=== PATIENT | male | born 1985 | race Caucasian/White ===

== ENCOUNTER 2016-06-17 07:21 | Emergency (ER) | payer OTHER ==
[~2016-06-17] VITALS: Ht 172.7 cm; Wt 101.0 kg
[2016-06-17 07:24] VITALS: Ht 172.7 cm; Wt 101.0 kg
--- NOTE | 2016-06-17 07:48 | ERD ---
ER Documentation Chief Complaint Date/Time DATE: 06/17/16 TIME: 07:46 Chief Complaint LT SHOULDER PAIN X 2 WEEKS HPI This a 30-year-old male who presents the emergency department today complaining of left shoulder pain. Patient states that one week ago he was lifting some heavy furniture and had a furniture over his head when his arm went backwards. Patient states since that time he has had cracking when it moves and he feels like the shoulder is slipping out. He has not taken any medication for the pain. Denies any fevers or chills or previous trauma. ROS All systems reviewed and are negative except as per history of present illness. Medications Home Meds Active Scripts Acetaminophen* (Tylophen*) 500 Mg Capsule, 1 CAP PO Q6H Y for PAIN AND OR ELEVATED TEMP, #30 CAP Prov:CHARLES MUJICA PA-C 06/17/16 Naproxen* (Naprosyn*) 500 Mg Tablet, 500 MG PO BID Y for PAIN AND/OR INFLAMMATION, #30 TAB Prov:CHARLES MUJICA PA-C 06/17/16 PMhx/Soc Medical and Surgical Hx: pt denies Medical Hx, pt denies Surgical Hx Hx Tobacco Use: Yes Smoking Status: Current some day smoker Physical Exam Vitals Vital Signs Date Time Temp Pulse Resp B/P Pulse Ox O2 Delivery O2 Flow Rate FiO2 06/17/16 07:24 97.8 68 18 168/88 98 Physical Exam Const: No acute distress Head: Atraumatic Eyes: Normal Conjunctiva ENT: Normal External Ears, Nose and Mouth. Neck: Full range of motion..~ No meningismus. Resp: Clear to auscultation bilaterally Cardio: Regular rate and rhythm, no murmurs Abd: Soft, non tender, non distended. Normal bowel sounds Skin: No petechiae or rashes MSK: Left shoulder with no obvious deformity, no effusion. No ecchymosis. Tenderness to palpation over lateral aspect of deltoid. Full active range of motion with pain. Pulses 2+. Distal neurovascularly intact. Neur: Awake and alert Psych: Normal Mood and Affect Results 24 hrs Current Medications Medications (Trade) Dose Ordered Sig/Ju Route PRN Reason Start Time Stop Time Status Last Admin Dose Admin Ibuprofen (Motrin) 800 mg ONCE ONCE PO 06/17/16 08:00 06/17/16 08:01 DC 3/5/17 07:46 DIAGNOSTIC IMAGING REPORT Patient: FLORIDALMA LOAIZA : 1985 Age: 30 Sex: M [id number] [id number] DOS: 06/17/16 0000 Ordering MD: CHARLES MUJICA PA-C Location: [facility] Room/Bed: PROCEDURE: XR left Shoulder. CLINICAL INDICATION: Trauma, subluxation TECHNIQUE: 3 views of the left shoulder are available for review. COMPARISON: None available FINDINGS: There is no acute fracture or dislocation. The glenohumeral and acromioclavicular joints are intact. The soft tissues around the left shoulder are unremarkable. There is no acute fracture of the visualized left ribs. The visualized left lung is clear. RPTAT: AA IMPRESSION: 1. No acute bony abnormality. .Herlinda Nguyen MD, MD Date Time Electronically viewed and signed by .Herlinda Nguyen MD, on 06/17/2016 08: 41 .T/ CC: CHARLES MUJICA PA-C Procedures/MDM This a 28-year-old male who presents the emergency department today complaining of left shoulder pain for the past week after moving furniture. Patient did have trauma describing his mechanism of injury it sounds that the patient had a possible subluxation. Given this I did obtain x-rays. Per the radiology report images of the left shoulder show no acute fracture dislocation. Humira and AC joints are intact. Soft tissues are unremarkable. . Patient is afebrile and otherwise well-appearing. Low suspicion for septic joint or gout. Patient symptoms at this time consistent with sprain versus strain versus rotator cuff or labral pathology. I explained to the patient that the x-rays are only able to look at the bone and any bony abnormality. I have explained to him that he would need to follow- up with an digital publishing specialist for further evaluation and management or possible MRI to rule out damage to cartilage or ligaments or tendons. Patient understood. Patient was given Motrin here in the emergency department. I will give him a prescription for Naprosyn and Tylenol for home. Patient declined a sling for comfort. At this time the patient is stable for discharge and outpatient management. Patient should follow up with their PCP in the next 1-2 days. He was given a list of community resources. They may return to the emergency department sooner for any persistent or worsening of symptoms. Patient understood and agreed with the plan. Departure Diagnosis: Primary Impression: Shoulder injury Encounter type: initial encounter Laterality: left Qualified Code: S49.92XA - Shoulder injury, left, initial encounter Condition: Fair CHARLES MUJICA PA-C Jun 17, 2016 07:48
[2016-06-17] MEDS ORDERED: IBUPROFEN 800 MG TAB PO ONE (08:00)
--- NOTE | 2016-06-17 08:41 | RADRPT ---
PROCEDURE: XR left Shoulder. CLINICAL INDICATION: Trauma, subluxation TECHNIQUE: 3 views of the left shoulder are available for review. COMPARISON: None available FINDINGS: There is no acute fracture or dislocation. The glenohumeral and acromioclavicular joints are intact . The soft tissues around the left shoulder are unremarkable. There is no acute fracture of the visualized left ribs. The visualized left lung is clear. RPTAT: AA IMPRESSION: 1. No acute bony abnormality. .Herlinda Nguyen MD, MD Date Time Electronically viewed and signed by .Herlinda Nguyen MD, on 06/17/2016 08:41 .T/
[2016-06-17] MEDS ORDERED: NAPR-260 PO (08:47)
[2016-06-17] MEDS ORDERED: ACET500C5 PO (08:47)
== END 2016-06-17 09:05 | disposition home or self-care (01) ==
LOC: FTE 07:21
DX: S49.92XA Unspecified injury of left shoulder and upper arm, initial encounter (principal); F17.210 Nicotine dependence, cigarettes, uncomplicated; W22.8XXA Striking against or struck by other objects, initial encounter; Y92.9 Unspecified place or not applicable
CPT/HCPCS: 73030; Z7502; Z7610